=== PATIENT | female | born 1965 | race Caucasian/White ===

== ENCOUNTER 2024-11-07 12:59 | Outpatient (REF) | payer MEDICARE, SELFPAY ==
[2024-11-07 14:31] LABS: Hematocrit 34.8 % (37.0-47.0); Hemoglobin 11.6 g/dl (12.0-16.0); Mean Corpuscular HGB Conc 33.3 g/dl (31.0-35.0); Mean Corpuscular Hemoglobin 31.6 pg (27.0-33.0); Mean Corpuscular Volume 94.8 fL (80.0-98.0); NRBC Abs Auto 0.000 X10*3/uL (0.0-0.012); NRBC Pct Auto 0.0 /100WBC (0.0-0.2); Platelet Count 239 X10*3/uL (160-400); Red Blood Count 3.67 X10*6/uL (4.20-5.50); White Blood Count 6.5 X10*3/uL (4.8-10.8)
[2024-11-07 15:07] LABS: Alanine Aminotransferase 79 U/L (0-31); Albumin Level 4.4 g/dL (3.5-5.0); Alkaline Phosphatase 48 U/L (39-117); Anion Gap 13 (12-20); Aspartate Amino Transferase 80 U/L (5-31); Blood Urea Nitrogen 16 mg/dL (9-16); Calcium 9.4 mg/dL (8.4-10.2); Carbon Dioxide 27 mmol/L (22-29); Chloride 102 mmol/L (96-108); Cholesterol 339 mg/dL (<200); Estimated Glomerular Filt Rate 30; HDL Cholesterol 55 mg/dL (>40); Potassium 4.0 mmol/L (3.3-5.1); Sodium 138 mmol/L (135-145); Total Protein 7.1 g/dL (6.5-8.0); Triglycerides 252 mg/dL (<150)
[2024-11-07 15:58] LABS: Free T4 (Free Thyroxine) < 0.42 ng/dL (0.71-1.85)
[2024-11-08 04:29] LABS: Syphilis Screen Nonreactive (Nonreactive)
[2024-11-08 04:56] LABS: HIV Num 1 0.08 S/CO (0.00-0.99); ~HepC Num1 0.06 S/CO (0.00-0.79); ~Hepatitis C Antibody Nonreactive (Nonreactive)
== END 2024-11-07 13:00 | disposition home or self-care (01) ==
LOC: HO.LAB 12:59
PROVIDERS: PCP Physician Assistant Medical; Visit Provider Physician Assistant Medical
DX: Z00.00 Encounter for general adult medical examination without abnormal findings (principal); Z76.89 Persons encountering health services in other specified circumstances; Z11.4 Encounter for screening for human immunodeficiency virus [HIV]; F19.11 Other psychoactive substance abuse, in remission; R07.9 Chest pain, unspecified; E78.2 Mixed hyperlipidemia; E03.9 Hypothyroidism, unspecified; H54.7 Unspecified visual loss; K21.9 Gastro-esophageal reflux disease without esophagitis; Z20.2 Contact with and (suspected) exposure to infections with a predominantly sexual mode of transmission; Z87.891 Personal history of nicotine dependence
CPT/HCPCS: 36415; 80053; 80061; 84439; 84443; 85027; 86780; 86803; 87389

== ENCOUNTER 2024-12-24 09:07 | Outpatient (AMB) | payer MEDICARE, SELFPAY ==
[2024-12-24 09:08] VITALS: BP 114/58; PULSE 56; BMI 31.2
--- NOTE | 2024-12-24 09:08 | A.OFFVIS_ITS ---
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 She experiences chest pressure and dyspnea, exacerbated by exertion and sometimes present at rest, ongoing for two years. Pain radiates to the neck and arms. She has hyperlipidemia and hypothyroidism, recently resumed levothyroxine. Substance abuse history includes cocaine and heroin, currently on methadone. She has a smoking history and secondhand smoke exposure. Sacroiliac joint dysfunction limits physical activity. Family history includes paternal myocardial infarction and congestive heart failure, maternal stroke. Lives with her . [facility] Medical History GERD (gastroesophageal reflux disease) Decreased visual acuity Shortness of breath Chest pain Hypothyroidism Hyperlipidemia Routine screening for STI (sexually transmitted infection) History of substance abuse Health care maintenance Family History Mother Heart problem Father Substance abuse Heart attack Congestive heart failure Social History Housing: Apartment Alcohol intake: former Patient Tobacco Use Status: Former Tobacco user e-Cigarette/Vaping Use: Former Use service: No Current occupational status: unemployed Cognitive needs: Yes (cane) Hearing needs: No Vision needs: Yes (reading glasses) Review of Systems Const All systems reviewed & are unremarkable except as noted in HPI and below Denies chills, Denies daytime sleepiness, Denies fatigue, Denies fever(s), Denies poor appetite, Denies snoring, Denies stops breathing during sleep, Denies weight gain and Denies weight loss Eyes Denies loss of vision Card Reports chest pain, Reports chest pain at rest, Reports chest pain with activity, Denies claudication, Denies leg edema, Denies lightheadedness, Denies palpitations, Denies dyspnea, Reports dyspnea on exertion and Denies orthopnea Resp Reports chest congestion, Denies cough, Denies excessive phlegm production, Denies pain with cough, Denies dyspnea, Reports dyspnea on exertion, Denies sn oring, Denies wheezing and Denies other GI Denies abdominal pain, Denies hematochezia, Denies change in bowel habits, Denies nausea and Denies vomiting Denies urinary frequency and Denies dysuria Musc Denies arthralgias and Denies muscle weakness Skin/Breast Denies nail changes and Denies rash Neuro Denies loss of vision and Denies memory loss Psych Denies depression, Reports difficulty concentrating, Denies auditory hallucinations and Denies memory loss Endo Denies fatigue and Denies palpitations Sheldon/Lymph Denies easy bruising Aller/Immun Denies wheezing Physical Exam Vital Signs: Last Vital Signs Pulse 56 12/24/24 09:08 BP 114/58 L 12/24/24 09:08 BMI result Body Mass Index 31.2 Const General: cooperative, healthy appearing, comfortable and no acute distress Orientation/consciousness: patient oriented x3 Neck Neck: Yes normal visual inspection Resp Effort & Inspection: normal respiratory effort Auscultation: clear to auscultation bilaterally, no crackles, no rales, no rhonchi and no wheezes Cardio Rate: regular rate Rhythm: regular rhythm Heart sounds: S1 normal heart sound present, S2 normal heart sound present, no gallops, no murmurs and no rubs Neuro General: patient oriented x3 Extrem General: Yes normal to inspection, No no pedal edema and No calf tenderness Psych Appearance: grossly normal Mental Status: mental status grossly normal Speech and movement: Normal speech and movement present Office Procedures EKG Details: Today, read by me, sinus bradycardia, low voltage QRS, rate 57, Qtc 426ms [id number], Complete Assessment & Plan Assessment & Plan (1) Precordial chest pain: Code(s): R07.2 - Precordial pain Category: Medical Plan: Chest discomfort with typical and atypical features. EKG today showing sinus bradycardia, low-voltage QRS, no ischemic findings, rate 57. Will check an echocardiogram to assess for structural heart disease. Will check a pharmacological nuclear stress test to assess for ischemia. She ambulates with a cane and unable to exercise on treadmill. Signs and symptoms of angina reviewed with her. Emergency care if ever needed for symptoms. Cardiology follow-up 4-6 weeks, sooner if needed. (2) Hyperlipidemia: Code(s): E78.5 - Hyperlipidemia, unspecified Category: Medical Qualifiers: Hyperlipidemia type: mixed hyperlipidemia Qualified Code(s): E78.2 - Mixed hyperlipidemia Plan: [place] LDL goal less than 100. Recent labs show LDL 234. She also has elevated AST 80 ALT 79. Reviewed these findings with her. She reports no known history of liver dysfunction. Will hold off on addition of statin therapy at this time. Recommend re-evaluation of liver function test in the near future. Will forward this note to her PCP. (3) Shortness of breath: Code(s): R06.02 - Shortness of breath Category: Medical Plan: Shortness of breath along with chest discomfort as above Plan Time spent on chart review, documentation, interview and assessment Orders: Orders CA echo transthoracic complete Today R07.2 - Precordial pain CA lexiscan stress w patricia Today R07.2 - Precordial pain NM cardiolite stress test Today R07.2 - Precordial pain Coding Level of Care Code New Pt Level 4 (64859) Complex EM visit Add On G2211 Diagnoses Precordial chest pain R07.2 Mixed hyperlipidemia E78.2 Hyperlipidemia type: mixed hyperlipidemia Shortness of breath R06.02 CPT Codes EKG - CPT: 93617-[id number], Complete ([id number]) Time Spent (min) 28
== END 2024-12-24 09:45 | disposition home or self-care (01) ==
LOC: HO.HCS 09:07
PROVIDERS: PCP Physician Assistant Medical; Visit Provider Nurse Practitioner Family
DX: R07.2 Precordial pain (principal); E78.2 Mixed hyperlipidemia; R06.02 Shortness of breath
CPT/HCPCS: 93010; 99204; G2211

== ENCOUNTER → 2024-12-24 09:07 | Outpatient (BNVA) | payer MEDICARE, SELFPAY | PROVIDERS: PCP Physician Assistant Medical; Visit Provider Nurse Practitioner Family | DX: R07.2 Precordial pain (principal); E78.5 Hyperlipidemia, unspecified; R06.02 Shortness of breath | CPT/HCPCS: 93005; 99202 ==

== ENCOUNTER 2024-12-27 11:15 | Outpatient (REF) | payer MEDICARE, SELFPAY ==
[2024-12-27 13:59] LABS: Alanine Aminotransferase 16 U/L (0-31); Albumin Level 4.7 g/dL (3.5-5.0); Alkaline Phosphatase 51 U/L (39-117); Aspartate Amino Transferase 27 U/L (5-31); Total Protein 7.6 g/dL (6.5-8.0)
[2024-12-27 14:15] LABS: Ferritin 75 ng/mL (10-250)
[2024-12-27 14:26] LABS: Folate 5.7 ng/mL (> or = 4.0); Vitamin B12 456 pg/mL (200-900)
[2024-12-28 08:38] LABS: HBS Num1 0.00 mIU/mL (0-7.99); HBc Num1 0.06 S/CO (0.00-0.79); HBsAGNum1 0.37 S/CO (0.00-0.99); Hepatitis A Antibody IgM 0.18 Index (0-0.79); Hepatitis B Surface Antigen Negative (Negative); ~HepC Num1 0.12 S/CO (0.00-0.79); ~Hepatitis A Antibody IgM Nonreactive (Nonreactive); ~Hepatitis B Surface Antibody NONREACTIVE (Nonreactive); ~Hepatitis C Antibody Nonreactive (Nonreactive)
== END 2024-12-27 11:16 | disposition home or self-care (01) ==
LOC: HO.10HDL 11:15
PROVIDERS: Visit Provider Physician Assistant Medical
DX: R79.89 Other specified abnormal findings of blood chemistry (principal); D64.9 Anemia, unspecified
CPT/HCPCS: 36415; 80076; 82607; 82728; 82746; 86704; 86706; 86709; 86803; 87340